=== PATIENT | female | born 1945 | race Caucasian/White ===

== ENCOUNTER 2020-09-07 13:44 | Observation (INO) ==
[2020-09-07] MEDS ORDERED: ASPIRIN 325 MG TABLET PO STA (14:59)
[2020-09-07] MEDS ORDERED: NITROGLYCERIN SL 0.4 MG TABLET SL PRN (14:59)
[2020-09-07 15:22] LABS: Basophils % 0.4 % (0.0-0.8); Eosinophils # 0.1 10*3/uL (0.0-0.87); Eosinophils % 0.7 % (0.00-10.9); Hematocrit 37.9 VOL% (35.7-47.0); Hemoglobin 11.9 GM/DL (12.0-16.0); Immature Granulocytes % 0.4 %; Immature Granulocytes Absolute 0.03 #; Lymphocytes # 1.7 10*3/uL (1.4-4.0); Lymphocytes % 23.1 % (21.3-54.2); Mean Corpuscular HGB Conc 31.4 GM/DL (32-36); Mean Corpuscular Volume 82.4 FL (87-102); Mean Platelet Volume 10.2 FL (9.6-12.0); Monocytes % 9.2 % (1.7-12.7); Neutrophils % 66.2 % (38.7-73.9); Platelet Count 247 T/CUMM (130-400); Red Cell Distribution Width 15.9 % (9.3-17.3); White Blood Count 7.3 T/CUMM (4-12)
[2020-09-07 15:51] LABS: Albumin 3.9 G/DL (3.4-5.0); Bilirubin,Total 1.8 MG/DL (0.20-1.00); Calcium 8.9 MG/DL (8.5-10.1); Osmolality,Calculated 286.1 MOS/KG (273-304); Potassium 3.5 MMOL/L (3.5-5.1); Total Protein 6.9 G/DL (6.4-8.2)
[2020-09-07] MEDS ORDERED: ONDANSETRON 4 MG/2 ML VIAL IV PRN (16:57)
[2020-09-07] MEDS ORDERED: DEXTROSE 50% 25 GM/50 ML VIAL IV PRN (16:57)
[2020-09-07] MEDS ORDERED: ACETAMINOPHEN 325 MG TABLET PO PRN (16:57)
[2020-09-07] MEDS ORDERED: GLUCAGON 1 MG VIAL IM PRN (16:57)
[2020-09-07] MEDS ORDERED: MORPHINE 2 MG/1 ML SYRINGE IV PRN (16:57)
[2020-09-07] MEDS ORDERED: ENOXAPARIN 40 MG/0.4 ML SYRINGE SUBCUT SCH (17:00)
[2020-09-07] MEDS ORDERED: lisinopriL 2.5 MG TABLET PO ONE (17:03)
[2020-09-07 17:56] LABS: Risk Ratio 2.84; Thyroid Stimulating Hormone 1.15 uIU/ml (0.358-3.74); VLDL Cholesterol 23.8 MG/DL
[2020-09-07] MEDS: lisinopriL 2.5 MG TABLET PO SCH (19:26)
[2020-09-07] MEDS: PANTOPRAZOLE 40 MG TABLET PO SCH (19:26)
[2020-09-07] MEDS ORDERED: SIMVASTATIN 10 MG TABLET PO SCH (21:00)
[2020-09-08 05:48] LABS: Basophils # 0.1 10*3/uL (0.0-0.2); Eosinophils # 0.1 10*3/uL (0.0-0.87); Hematocrit 32.8 VOL% (35.7-47.0); Hemoglobin 10.3 GM/DL (12.0-16.0); Immature Granulocytes % 0.2 %; Immature Granulocytes Absolute 0.01 #; Lymphocytes # 1.8 10*3/uL (1.4-4.0); Lymphocytes % 34.9 % (21.3-54.2); Mean Corpuscular HGB Conc 31.4 GM/DL (32-36); Mean Platelet Volume 10.4 FL (9.6-12.0); Monocytes % 11.1 % (1.7-12.7); Neutrophils % 51.8 % (38.7-73.9); Platelet Count 197 T/CUMM (130-400); Red Blood Count 4.05 MC/CUMM (3.8-5.5); Red Cell Distribution Width 15.9 % (9.3-17.3); White Blood Count 5.2 T/CUMM (4-12)
[2020-09-08 06:20] LABS: Calcium 8.6 MG/DL (8.5-10.1); Osmolality,Calculated 289.7 MOS/KG (273-304); Potassium 3.5 MMOL/L (3.5-5.1)
[2020-09-08 08:23] VITALS: BP 113/54
[2020-09-08] MEDS ORDERED: amLODIPine 5 MG TABLET PO SCH (09:00)
[2020-09-08] MEDS ORDERED: ASPIRIN CHEW 81 MG TABLET PO SCH (09:00)
[2020-09-08] MEDS ORDERED: lisinopriL 5 MG TABLET PO SCH (09:00)
[2020-09-08] MEDS: lisinopriL 2.5 MG TABLET PO SCH (09:53)
[2020-09-08] MEDS: PANTOPRAZOLE 40 MG TABLET PO SCH (09:53)
== END 2020-09-08 11:07 | disposition home or self-care (01) ==
LOC: EDUNIT# → EDBD → N.ED 13:44 → N.EDINP 13:44 → N.TELES 20:06
PROVIDERS: ADMIT Internal Medicine; ATTEND Internal Medicine